=== PATIENT | male | born 1965 | race Caucasian/White ===

== ENCOUNTER 2017-08-13 14:10 | Inpatient (IN) | payer BC ==
[~2017-08-13] VITALS: Ht 182.9 cm; Wt 104.6 kg
[2017-08-13 14:34] LABS: BASOPHILS % (AUTO) 0.2 % (0-1); EOSINOPHILS # (AUTO) 0.2 X10'3 (0-0.9); EOSINOPHILS % (AUTO) 2.8 % (0-6); LYMPHOCYTES # (AUTO) 2.5 X10'3 (1.1-4.8); LYMPHOCYTES % (AUTO) 28.4 % (21-51); MEAN CORPUSCULAR HEMOGLOBIN 29.4 PG (27.0-31.0); MEAN CORPUSCULAR VOLUME 86.2 FL (78-98); MEAN PLATELET VOLUME 9.2 FL (7.4-10.4); MONOCYTES # (AUTO) 0.5 X10'3 (0-0.9); MONOCYTES % (AUTO) 6.1 % (2-12); NEUTROPHILS # (AUTO) 5.5 X10'3 (1.8-7.7); NEUTROPHILS % (AUTO) 62.5 % (42-75); PRE OP HEMATOCRIT 44.7 % (42.0-52.0); PRE OP HEMOGLOBIN 15.2 g/dL (14.0-17.9); PRE OP PLATELET COUNT 203 X10'3 (140-440); RED BLOOD COUNT 5.19 X10'6 (4.70-6.10); RED CELL DISTRIBUTION WIDTH 15.2 % (11.5-14.5)
[2017-08-13 14:50] LABS: ALKALINE PHOSPHATASE 66 IU/L (46-116); BLOOD UREA NITROGEN 14 MG/DL (7-18); BUN/CREATININE RATIO 15.1 (5.4-32.0); CALCIUM 9.3 MG/DL (8.5-10.1); CHLORIDE 102 MMOL/L (99-107); CREATININE 0.93 MG/DL (0.60-1.10); PRE OP ALT 45 U/L (30-65); PRE OP ANION GAP 7 (8-16); PRE OP AST 32 U/L (10-37); PRE OP BILIRUB, TOTAL 0.4 MG/DL (0.0-1.0); PRE OP GLUCOSE 100 MG/DL (70-104); PRE OP POTASSIUM 3.8 MMOL/L (3.4-5.1); PRE OP SODIUM 139 MMOL/L (135-145); TOTAL CARBON DIOXIDE 30.5 MMOL/L (24-32); TOTAL PROTEIN 7.9 G/DL (6.4-8.2); eGFR 86 ML/MIN
[2017-08-18] MEDS ORDERED: NO HOME MEDS (13:45)
[2017-08-19] VITALS (25 sets, daily range): BP systolic 86–118; BP diastolic 41–81
[2017-08-19] MEDS ORDERED: ringers solution, lacted 1,000 ML IV SCH ×3 (05:00→10:46)
[2017-08-19] MEDS ORDERED: vancomycin inj 1,500 MG in normal saline 300ml IV soln IV ONE (05:30)
[2017-08-19] MEDS ORDERED: famotidine 20mg tablet PO ONE (05:30)
[2017-08-19] MEDS ORDERED: gabapentin 300mg capsule PO ONE (05:30)
[2017-08-19] MEDS ORDERED: oxyCODONE SR 10mg (sust. release) tab PO ONE (05:30)
[2017-08-19] MEDS ORDERED: Cefazolin 2GM/100ML NS IVPB IV ONE (05:30)
[2017-08-19] MEDS ORDERED: metoclopramide 5 mg/ml inj IV ONE (05:30)
[2017-08-19] MEDS ORDERED: acetaminophen 325mg tablet PO ONE (05:30)
[2017-08-19] MEDS ORDERED: LIDOcaine 1% (10mg/ml) 2ml vial ONE (06:15)
[2017-08-19] MEDS ORDERED: vancomycin 1,000mg inj ONE (06:42)
[2017-08-19] MEDS ORDERED: morphine 10mg/ml inj. ONE (06:42)
[2017-08-19] MEDS ORDERED: ROPIVAcaine 0.5% (5mg/ml) 30ml vial ONE (06:42)
[2017-08-19] MEDS ORDERED: ketorolac trometh. 30mg/ml inj. ONE (06:42)
[2017-08-19] MEDS ORDERED: ceFAZolin 1000mg inj ONE (06:54)
[2017-08-19] MEDS ORDERED: MIDAZolam 5mg/5ml vial ONE (07:05)
[2017-08-19] MEDS ORDERED: BUPIVAcaine 0.5% inj/PF 30 ml vial ONE (07:06)
[2017-08-19] MEDS ORDERED: morphine /PF 1mg/ml 10ml inj. ONE (07:14)
[2017-08-19] MEDS ORDERED: tranexamic acid inj. 1,000 MG in normal saline 100ml IV soln 90 ML IV ONE (07:40)
[2017-08-19] MEDS ORDERED: calcium chloride 100 MG/1 ML inj IV ONE (08:12)
[2017-08-19] MEDS ORDERED: Thrombin (Bovine) 5,000 unit vial TP ONE (08:13)
[2017-08-19] MEDS ORDERED: propofol inj 20 ML IV ONE (08:57)
[2017-08-19] MEDS ORDERED: ondansetron/PF 4mg/2ml inj ONE (09:29)
[2017-08-19] MEDS ORDERED: dexamethasone sod phosphate 4mg/ml inj. ONE (09:29)
[2017-08-19] MEDS ORDERED: HYDROmorphone inj. 0.5 MG/0.5 ML DISP.SYRIN IV PRN ×2 (10:30)
[2017-08-19] MEDS ORDERED: magnesium hydroxide 30ml (MOM) UD suspension PO PRN (10:30)
[2017-08-19] MEDS ORDERED: ondansetron/PF 4mg/2ml inj IV PRN ×3 (10:30→10:50)
[2017-08-19] MEDS ORDERED: bisacodyl 10mg suppository rectal RC PRN (10:30)
[2017-08-19] MEDS ORDERED: diphenhydrAMINE 25mg capsule PO PRN ×2 (10:30)
[2017-08-19] MEDS ORDERED: acetaminophen 325mg tablet PO PRN (10:30)
[2017-08-19] MEDS ORDERED: meperidine/PF 25mg/ml syringe IV PRN (10:50)
[2017-08-19] MEDS ORDERED: proCHLORperazine 10 MG/2 ml inj IV PRN (10:50)
[2017-08-19] MEDS ORDERED: fentaNYL/PF 50MCG/1 ML 2ML syringe IV PRN (10:50)
[2017-08-19] MEDS ORDERED: tranexamic acid inj. 1,000 MG in normal saline 100ml IV soln 100 ML IV ONE (14:00)
[2017-08-19] MEDS: gabapentin 300mg capsule PO SCH ×2 (15:44→20:27)
[2017-08-19] MEDS: ceFAZolin 1GM/D5W- ADD-VANTAGE 50 ML IV SCH (15:46)
[2017-08-19] MEDS: acetaminophen 325mg tablet PO SCH ×2 (15:46→20:27)
[2017-08-19] MEDS: potassium cl 20mEq in 1/2 NS 1,000 ML IV SCH (18:58)
[2017-08-19] MEDS ORDERED: vancomycin/NS 1 GM ADD-VANTAGE 250 ML IV SCH (20:00)
[2017-08-19] MEDS: oxyCODONE IR 5mg (immed. release) tablet PO PRN (20:26)
[2017-08-19] MEDS: sennosides 8.6mg tablet PO SCH (20:27)
[2017-08-20] MEDS: ceFAZolin 1GM/D5W- ADD-VANTAGE 50 ML IV SCH (00:05)
[2017-08-20] MEDS: oxyCODONE IR 5mg (immed. release) tablet PO PRN ×6 (00:06→20:25)
[2017-08-20] MEDS: acetaminophen 325mg tablet PO SCH ×4 (01:42→20:10)
[2017-08-20 02:00] VITALS: BP 104/66
[2017-08-20] MEDS: potassium cl 20mEq in 1/2 NS 1,000 ML IV SCH ×4 (02:29→18:29)
[2017-08-20 05:00] VITALS: BP 105/58
[2017-08-20] MEDS: gabapentin 300mg capsule PO SCH ×3 (07:16→20:10)
[2017-08-20] MEDS: enoxaparin 40mg/0.4ml syringe SQ SCH (07:18)
[2017-08-20 10:00] VITALS: BP 107/66
[2017-08-20] MEDS ORDERED: HYDROmorphone 1 mg/ml syringe ONE (10:43)
[2017-08-20 18:00] VITALS: BP 120/70
[2017-08-20] MEDS: sennosides 8.6mg tablet PO SCH (20:11)
[2017-08-20] MEDS: celeCOXIB 100mg capsule PO SCH (20:11)
[2017-08-20 22:00] VITALS: BP 115/61
[2017-08-21] MEDS: oxyCODONE IR 5mg (immed. release) tablet PO PRN ×2 (00:23→04:51)
[2017-08-21] MEDS: potassium cl 20mEq in 1/2 NS 1,000 ML IV SCH (02:29)
[2017-08-21] MEDS: acetaminophen 325mg tablet PO SCH ×2 (03:29→07:37)
[2017-08-21 06:00] VITALS: BP 118/72
[2017-08-21 06:05] LABS: BASOPHILS % (AUTO) 0.6 % (0-1); EOSINOPHILS # (AUTO) 0.3 X10'3 (0-0.9); EOSINOPHILS % (AUTO) 4.1 % (0-6); HEMATOCRIT 31.8 % (42.0-52.0); HEMOGLOBIN 10.7 g/dl (14.0-17.9); LYMPHOCYTES % (AUTO) 28.5 % (21-51); MEAN CORPUSCULAR HEMOGLOBIN 29.2 PG (27.0-31.0); MEAN CORPUSCULAR HGB CONC 33.7 % (33.0-36.5); MEAN CORPUSCULAR VOLUME 86.8 FL (78-98); MEAN PLATELET VOLUME 9.6 FL (7.4-10.4); MONOCYTES # (AUTO) 0.8 X10'3 (0-0.9); MONOCYTES % (AUTO) 12.2 % (2-12); NEUTROPHILS # (AUTO) 3.8 X10'3 (1.8-7.7); NEUTROPHILS % (AUTO) 54.6 % (42-75); PLATELET COUNT 157 X10'3 (140-440); RED BLOOD COUNT 3.67 X10'6 (4.70-6.10); RED CELL DISTRIBUTION WIDTH 14.7 % (11.5-14.5); WHITE BLOOD COUNT 6.9 X10'3 (4.5-11.0)
[2017-08-21 06:27] LABS: ALBUMIN 3.1 G/DL (3.4-5.0); ANION GAP 6 (8-16); BLOOD UREA NITROGEN 10 MG/DL (7-18); BUN/CREATININE RATIO 12.5 (5.4-32.0); CALCIUM 8.5 MG/DL (8.5-10.1); CHLORIDE 105 MMOL/L (99-107); GLUCOSE 99 MG/DL (70-104); POTASSIUM 4.3 MMOL/L (3.5-5.1); SODIUM 140 MMOL/L (135-145); eGFR > 90 ML/MIN
[2017-08-21] MEDS: enoxaparin 40mg/0.4ml syringe SQ SCH (07:23)
[2017-08-21] MEDS: gabapentin 300mg capsule PO SCH (07:23)
[2017-08-21] MEDS: celeCOXIB 100mg capsule PO SCH (07:23)
[2017-08-21] MEDS ORDERED: HYDROcodone/acetaminophen 10/325mg tab PO PRN ×2 (07:40)
[2017-08-21 10:00] VITALS: BP 120/77
[2017-08-21] MEDS ORDERED: acetaminophen 325mg tablet PO PRN (10:30)
== END 2017-08-21 11:51 | disposition home or self-care (01) | DRG 470 ==
LOC: EDSTATUS 14:10 → PAS IN 08-19 05:24 → EDSTATUS 08-19 07:30 → ORTHO 4S 08-19 12:52
PROVIDERS: ADMIT Orthopaedic Surgery; ATTEND Orthopaedic Surgery
PROC: 8E0Y3CZ Robotic Assisted Procedure of Lower Extremity, Percutaneous Approach (ICD-10-PCS; 2017-08-19)
PROC: 0SRC0J9 Replacement of Right Knee Joint with Synthetic Substitute, Cemented, Open Approach (ICD-10-PCS; principal; 2017-08-19 07:20)
DX: M17.11 Unilateral primary osteoarthritis, right knee (principal); D62 Acute posthemorrhagic anemia
CPT/HCPCS: 0232T; Z7506; 36415; 80048; 80053; 85025; 87070; 93005; 97110; 97116; 97162; 97530; A6455; A7000; C1713; C1758; C1776; J0690; J1100; J1170; J1650; J1885; J2250; J2270; J2274; J2405; J2704; J2765; J2795; J3370; J3490; J7030; J7120